=== PATIENT | female | born 1955 | race Two or more races ===

== ENCOUNTER 2025-01-31 10:43 | Observation (INO) | payer MEDICARE, MEDICAID, SELFPAY ==
[2025-01-31] VITALS (26 sets, daily range): BP systolic 133–163; BP diastolic 36–75; PULSE 40–55; RESP 13–97; TEMP 36.2–36.8; O2SAT 96–100; BMI 28.3
--- NOTE | 2025-01-31 10:52 | EKG_ITS ---
[facility] Test Date: 2025-01-31 Pat Name: BIN MONTES Department: Room: - Gender: Female Supervisor Type Photography: : 1955 Requested By: Jc Byrne Order Number: [id number] Reading MD: Jc Byrne Measurements Intervals [place] Rate: 40 P: 78 IA: 229 QRS: -40 QRSD: 135 T: 136 QT: 562 QTc: 461 Interpretive Statements SINUS BRADYCARDIA WITH FIRST DEGREE AV BLOCK LEFT AXIS DEVIATION [QRS AXIS < -30] RIGHT BUNDLE BRANCH BLOCK [120+ ms QRS DURATION, UPRIGHT V1, 40+ ms S IN I/aVL/V4/V5/V6] MODERATE T-WAVE ABNORMALITY, CONSIDER LATERAL ISCHEMIA [-0.1+ mV T-WAVE IN I/aVL/V5/V6] PROLONGED QT INTERVAL CRITICAL TEST RESULT Compared to ECG 05/19/2023 13:03:50 First degree AV block now present T-wave abnormality now present Possible ischemia now present Prolonged QT interval now present Sinus tachycardia no longer present /store/S0/[id number]/ecg/[id number].pdf
--- NOTE | 2025-01-31 10:52 | XR_ITS ---
EXAMINATION: AP chest single view TECHNIQUE: AP portable upright chest single view Date and time: January,, 11:19 a.m., comparison May 19, 2023 INDICATIONS: Chest pain today. FINDINGS: Early CHF Mild enlargement cardiac contour. Prominent vascular congestion. Early septal pulmonary edema. Prominent osteopenia IMPRESSION: Early CHF
[2025-01-31 11:39] LABS: Basophils # (Auto) 0.0 Thou/mm3 (0.0-0.2); Basophils % (Auto) 0 % (0-2.5); Eosinophils # (Auto) 0.2 Thou/mm3 (0.0-0.5); Eosinophils % (Auto) 3 % (0-10); Hematocrit 31.7 % (36.0-46.0); Hemoglobin 10.1 g/dL (12.0-16.0); Immature Granulocytes Auto 0.03 Thou/mm3 (0.00-0.00); Lymphocytes # (Auto) 1.3 Thou/mm3 (1.0-4.8); Lymphocytes % (Auto) 18 % (10-50); Mean Corpuscular HGB Conc 31.9 g/dl (31.0-37.0); Mean Corpuscular Hemoglobin 33.9 pg (25.0-35.0); Mean Corpuscular Volume 106 fL (80-100); Monocytes # (Auto) 0.6 Thou/mm3 (0.0-0.8); Monocytes % (Auto) 8 % (0-12); Neutrophils # (Auto) 5.0 Thou/mm3 (1.8-7.7); Neutrophils % (Auto) 70 % (37-80); Nucleated Red Blood Cell # 0.00 Thou/mm3 (0.00-0.00); Nucleated Red Blood Cell % 0 /100 WBC (0); Platelet Count 115 Thou/mm3 (140-440); RDW Standard Deviation 60.8 fL (36.4-46.3); Red Blood Count 2.98 Miln/mm3 (4.00-5.20); White Blood Count 7.1 Thou/mm3 (3.6-11.0)
[2025-01-31 12:01] LABS: Alanine Aminotransferase 31 U/L (10-49); Albumin, Serum 3.8 gm/dL (3.4-4.8); Albumin/Globulin Ratio 1.6 (1.2-2.2); Alkaline Phosphatase 105 U/L (46-116); Anion Gap 14 (7-16); Aspartate Amino Transferase 44 U/L (0-34); BUN/Creatinine Ratio 9 Ratio (12-20); Bilirubin,Total 0.2 mg/dL (0.3-1.2); Blood Urea Nitrogen 52 mg/dL (9-23); Calcium 8.6 mg/dL (8.3-10.6); Calcium (Corrected) 8.8 mg/dL (8.5-10.1); Carbon Dioxide 25.6 mMol/L (20.0-31.0); Chloride 103 mMol/L (98-107); Creatinine (Component) 5.5 mg/dL (0.6-1.3); Estimated Creatinine Clearance 8.1 mL/min (>60); Globulin 2.4 gm/dL (2.3-3.5); Glucose 336 mg/dL (74-106); Lipase 36 U/L (12-53); Magnesium 2.7 mg/dL (1.6-2.6); Osmolality,Calculated 311 (275-295); Potassium 5.9 mMol/L (3.4-5.1); Sodium 143 mMol/L (136-145); Total Protein 6.2 gm/dL (5.7-8.2); eGFR 8 See Note
[2025-01-31 12:07] LABS: Troponin I 0.129 ng/mL (0.0-0.045)
--- NOTE | 2025-01-31 12:08 | PD.EDADULT ---
ED General RME/HPI General Chief complaint: Chest Pain Stated complaint: CHEST PAIN Time Seen by Provider: 01/31/25 10:52 Arrival date/time: 01/31/25 10:43 Related Data Home Medications ?Medication ?Instructions ?Recorded ?Confirmed atorvastatin 80 mg tablet (Lipitor) 80 mg PO QDAY 03/13/22 05/18/23 clopidogrel 75 mg tablet (Plavix) 75 mg PO QDAY 03/13/22 05/18/23 insulin NPH-reg human insulin 100 1 sliding scale dose subcut 03/13/22 05/18/23 unit/mL (70-30) subcutaneous USEASDIRECTD Diabetes syringe pregabalin 75 mg capsule 75 mg PO BID 03/13/22 05/18/23 vitamin B comp no.3-folic acid 1 1 tab PO QDAY 03/13/22 05/18/23 mg-vit C 60 mg-biotin 300 mcg tablet (Lupe-Alejandro Rx) linagliptin 5 mg tablet (Tradjenta) 5 mg PO QAM 06/12/22 05/18/23 acetaminophen 650 mg 650 mg PO BID 12/12/22 05/18/23 tablet,extended release (Tylenol 8 Hour) midodrine 2.5 mg tablet 2.5 mg PO BID PRN low blood 12/12/22 05/18/23 pressure vitamins A,C,M-rhhq-lftxmr 4,296 1 cap PO DAILY 12/12/22 05/18/23 mcg-226 mg-90 mg capsule (PreserVision AREDS) cilostazol 50 mg tablet 50 mg PO BID 05/18/23 05/18/23 Previous Rx's ?Medication ?Instructions ?Recorded lisinopril 10 mg tablet 10 mg PO QDAY 30 days #30 tabs 05/23/23 polyethylene glycol 3350 17 4 g PO QDAY #119 grams 05/23/23 gram/dose oral powder (Miralax) Allergies Allergy/AdvReac Type Severity Reaction Status Date / Time No Known Allergies Allergy Verified 05/18/23 05:16 ED Exam Narrative Physical exam: Physical Exam: GENERAL: Awake, answering questions appropriately, appears stated age HEENT: NC/AT. Moist mucosa. PERRLA/EOMI. CARDIO: Heart RRR, no obvious murmurs, no JVD. PULM: No coughing or visible SOB. Lungs CTA B/L. GI: Abdomen soft, NT/ND, +BS. URO/FISHING VESSEL CAPTAIN: +Maxwell catheter SKIN/MSK/EXT: Left AV fistula patent with thrill. 2+ pitting edema bilateral lower extremities. No wounds/discoloration/rashes/amputations noted. +Pedal pulses present B/L. NEURO: Oriented x3, Moves extremities x4, no focal neurologic deficits noted. Course Quality Measures none Orders Category Date Time Status COVID-19 Screening Questionnaire NOW Care 01/31/25 13:16 Active Real Estate Underwriter STAT Care 01/31/25 10:52 Active Continuous Pulse Oximetry ONCE Care 01/31/25 10:52 Active Decision to Admit X1 Care 01/31/25 13:16 Completed EKG (ED ONLY) *Do not use* NOW Care 01/31/25 10:52 Completed Hemodialysis Urgent Care 01/31/25 13:24 Active Insert IV STAT Care 01/31/25 10:52 Active Consult to Cardiology Stat Cons 01/31/25 12:30 Ordered Consult to Nephrology Stat Cons 01/31/25 12:40 Ordered EKG (ED Only) Stat Exams 01/31/25 10:52 Draft XR chest 1V portable Stat Exams 01/31/25 10:52 Completed B-Type Natriuretic Peptide Stat Lab 01/31/25 11:19 Completed CBC Stat Lab 01/31/25 11:19 Completed Comprehensive Metabolic Panel Stat Lab 01/31/25 11:19 Completed Lipase Stat Lab 01/31/25 11:19 Completed Magnesium Stat Lab 01/31/25 11:19 Completed Troponin I Stat Lab 01/31/25 11:19 Completed Troponin I Stat Lab 01/31/25 12:27 Completed ALBUTEROL RT 3ml [Proventil Rt 3ml] Med 01/31/25 12:27 Discontinued 10 mg INH X1 ONE Calcium Gluconate 10% Inj Med 01/31/25 12:27 Discontinued 1 gm IV X1 ONE Insulin Regular Med 01/31/25 12:27 Discontinued 5 unit IV X1 ONE Nitroglycerin [Nitrostat 1/150] Med 01/31/25 10:52 Discontinued 0.4 mg SL Q5M PRN Oxygen Delivery NOW RT 01/31/25 10:52 Active Vital Signs Vital signs: Vital Signs Temperature 98.2 F 01/31/25 11:08 Pulse Rate 41 L 01/31/25 11:08 Respiratory Rate 13 01/31/25 11:08 Blood Pressure 141/42 H 01/31/25 11:08 Pulse Oximetry (%) 99 01/31/25 11:08 Oxygen Delivery Method Room Air 01/31/25 11:08 Discharge Plan Plan Patient Disposition: Admit Acute Care w/in Hospital Prescriptions/Referrals Prescriptions/Med Rec: No Action Tradjenta 5 mg Tablet 5 mg PO QAM atorvastatin [Lipitor] 80 mg Tablet 80 mg PO QDAY clopidogrel [Plavix] 75 mg Tablet 75 mg PO QDAY insulin NPH and regular human 100 unit/mL (70-30) Syringe 1 sliding scale dose SUBCUT USEASDIRECTD pregabalin 75 mg Capsule 75 mg PO BID Lupe-Alejandro Rx 1-60-300 mg-mg-mcg Tablet 1 tab PO QDAY acetaminophen [Tylenol 8 Hour] 650 mg Tablet Extended Release 650 mg PO BID PreserVision AREDS 4,296 mcg-226 mg-90 mg Capsule 1 cap PO DAILY midodrine 2.5 mg Tablet 2.5 mg PO BID PRN (Reason: low blood pressure) cilostazol 50 mg Tablet 50 mg PO BID lisinopril 10 mg tablet 10 mg PO QDAY 30 Days Qty: 30 2RF polyethylene glycol 3350 [Miralax] 17 gram/dose powder 4 g PO QDAY Qty: 119 0RF Referrals: [facility] ([facility])Katey PA-C [Primary Care Provider] - In 1 week Problem List Clinical Impression: Symptomatic bradycardia Patient/Caregiver Discharge Instructions Print Language: Malawian Stand Alone Forms: Kiara Award Info., Patient Portal Info Letter MDM Narrative MDM hospital course (for use when minimal MDM required): HPI: 69-year-old female with past medical history of ESRD on HD (MWF), coronary artery disease status post stent placement, history of DVT with previous IVC filter placement, fbm-vtajjyy-xkfrsbsst type 2 diabetes, hide per lipidemia presenting to the ED on 01/31 with an episode of chest pain during dialysis session. As per EMS report, patient started experiencing substernal chest pain 20 minutes into dialysis session associated with some shortness of breath. She states that she was having chest pain on and off for several weeks now but that during dialysis session it was unbearable. En route, EMS did give the patient 156 mg aspirin along with nitroglycerin which apparently improved her pain down to 2 out of 10. Of note, she sees cardiology outpatient (last visit several weeks ago) and recent stress test was unremarkable. She also states that for the past few weeks she has felt more dizzy especially when ambulating. On examination, please refer to the physical exam above; patient presented mildly hypertensive 141/42, bradycardic with a heart rate of 41, respiratory rate of 13, afebrile satting 99 on room air. Pertinent lab findings included macrocytic anemia with hemoglobin 10.1 and MCV of 106, platelets 115, CMP did show hyperkalemia with a potassium of 5.9, BUN 52, creatinine 5.5, mild elevation of liver enzymes with an AST of 44, ALT 31 but daily bilirubin of 0.2, troponin was initially 0.129 but has downtrended to 0.127 and BNP is 1810, lipase of 36. EKG showed sinus bradycardia with prolonged SD interval likely first-degree AV block with some T wave abnormalities but no ST elevation. Chest x-ray did show early signs of CHF with prominent vascular congestion and mildly enlarged cardiac silhouette. #NSTEMI type II versus less likely to be type I #Symptomatic bradycardia As noted, patient's been having chest pain likely secondary to ESRD status versus overt coronary artery disease but she does have risk factors and history of CAD with stent placement Troponin of 0.129 has downtrended, chest x-ray does show vascular congestion likely secondary to ESRD Patient's EKG shows sinus bradycardia with first-degree AV block with some mild T wave inversions but no ST elevations Patient's printed circuit boards solder leveler consulted and is agreed to monitor the patient while she is admitted for possible need of pacemaker placement Nephrology has been consulted to continue dialysis sessions at the patient will require Plan: Hospitalist team was called and have agreed to admit the patient #Hyperkalemia As noted patient had a potassium of 5.9, abruptly stopped dialysis session Plan: IV insulin regular 5 units, calcium gluconate 1 g and albuterol treatment Dialysis as above Patient seen and assessed with attending Dr. Lee Byrne, DO PGY-2 Internal Medicine - GME Medication Administration(s) Medication Administration History Discontinued Medications Albuterol (Albuterol Rt 2.5 Mg/3 Ml Nebu) 10 mg INH X1 ONE Stop: 01/31/25 12:28 Last Admin: 01/31/25 13:00 Dose: 10 mg Documented By: KISHAN Calcium Gluconate (Calcium Gluconate 10% Inj 1 Gm/10 Ml Vial) 1 gm IV X1 ONE Stop: 01/31/25 12:28 Last Admin: 01/31/25 12:43 Dose: 1 gm Documented By: SERINA Insulin Human Regular (Insulin Hum Regular 1 Unit/0.01 Ml (Per Unit)) 5 unit IV X1 ONE Stop: 01/31/25 12:28 Last Admin: 01/31/25 12:42 Dose: 5 unit Documented By: SERINA Co-signed By: LESLYE Nitroglycerin (Nitroglycerin 0.4 Mg Subl Btl #25) 0.4 mg SL Q5M PRN PRN Reason: CHEST PAIN Stop: 01/31/25 12:52 Last Admin: 01/31/25 12:55 Dose: 0.4 mg Documented By: Admin: 01/31/25 12:43 Dose: 0.4 mg Documented By: SERINA
[2025-01-31] MEDS: INSULIN HUM REGULAR 1 UNIT/0.01 ML (PER UNIT) 5 UNIT IV (12:42)
[2025-01-31] MEDS: CALCIUM GLUCONATE 10% INJ 1 GM/10 ML VIAL IV (12:43)
[2025-01-31] MEDS: NITROGLYCERIN 0.4 MG SUBL BTL #25 SL ×2 (12:43→12:55)
[2025-01-31] MEDS: ALBUTEROL RT 2.5 MG/3 ML NEBU 10 MG INH (13:00)
[2025-01-31 13:19] LABS: B-Type Natriuretic Peptide 1810 pg/mL (0-100)
--- NOTE | 2025-01-31 13:37 | PD.RESCONSUL ---
HPI Data of Consult Consult date: 01/31/25 Consult Narrative Reason for consult: ESRD on dialysis History of present illness: Ms. Barakat is a 69-year-old female with past medical history of ESRD on HD (MWF), coronary artery disease status post stent placement, history of DVT with previous IVC filter placement, adm-etxetuf-ujoicvcqa type 2 diabetes, hide per lipidemia presenting to the ED on 01/31 with an episode of chest pain during dialysis session. As per EMS report, patient started experiencing substernal chest pain 20 minutes into dialysis session associated with some shortness of breath. She states that she was having chest pain on and off for several weeks now but that during dialysis session it was unbearable. En route, EMS did give the patient 156 mg aspirin along with nitroglycerin which apparently improved her pain down to 2 out of 10. Of note, she sees cardiology outpatient (last visit several weeks ago) and recent stress test was unremarkable. She also states that for the past few weeks she has felt more dizzy especially when ambulating. On examination, patient presented mildly hypertensive 141/42, bradycardic with a heart rate of 41, respiratory rate of 13, afebrile satting 99 on room air. Pertinent lab findings included macrocytic anemia with hemoglobin 10.1 and MCV of 106, platelets 115, CMP did show hyperkalemia with a potassium of 5.9, BUN 52, creatinine 5.5, mild elevation of liver enzymes with an AST of 44, ALT 31 but daily bilirubin of 0.2, troponin was initially 0.129 but has downtrended to 0.127 and BNP is 1810, lipase of 36. EKG showed sinus bradycardia with prolonged MN interval likely first-degree AV block with some T wave abnormalities but no ST elevation. Chest x-ray did show early signs of CHF with prominent vascular congestion and mildly enlarged cardiac silhouette. Past Medical History: as above Family History: noncontributory Surgical History: stent placement 3 years ago, remote right hand surgery Social History: Denies history of smoking, denies current alcohol use, denies recreational drug use Current Medications: Takes Lupe-parminder but does not take phoshate binder, does not recall meds nor has list, pending med rec Allergies: No known drug allergies Nephrology consulted for ESRD on dialysis MWF, requiring emergent dialysis today. 12/8/25: Patient seen and assessed during dialysis with patient daughter at bedside. Tolerating dialysis well. Follows alteration tailor Dr. Lopez. Per daughter, patient was started on dialysis 3 years ago after multiple consecutive MIs, last dialysis session Friday. Reports she has been compliant with sessions. Plan to remove 2L, will keep dialysis schedule for now. cc:: cc: Exam Vital Signs Temp Pulse Resp BP Pulse Ox O2 Del Method 98.2 F 40 L 16 148/44 H 97 Room Air 01/31/25 11:08 01/31/25 13:01 01/31/25 13:01 01/31/25 12:55 01/31/25 13:01 01/31/25 11:08 Narrative Exam Physical Exam General: Awake and in no acute distress. Conversational and non-toxic appearing. Sammarinese speaking, daughter at bedside. HEENT: Normocephalic, atraumatic, mucous membranes moist. Heart: Regular rate and rhythm, normal S1 and S2, no murmurs appreciated. Lungs: Clear to auscultation with no wheezing or crackles. Abdomen: Soft, nondistended, nontender, positive bowel sounds. No guarding or rebound tenderness. Neurologic: Alert and oriented x3, no gross neurological deficit, and patient able to move all 4 extremities. Extremities: Trace pitting edema in lower extremities. Skin: No rash or ecchymoses. Results Labs 02/01/25 04:55 02/01/25 04:55 Labs: Short CBC 01/31/25 Range/Units 11:19 WBC 7.1 (3.6-11.0) Thou/mm3 Hgb 10.1 L (12.0-16.0) g/dL Hct 31.7 L (36.0-46.0) % Plt Count 115 L (140-440) Thou/mm3 BMP 01/31/25 11:19 Sodium 143 Potassium 5.9 H Chloride 103 Carbon Dioxide 25.6 BUN 52 H Creatinine 5.5 H* Glucose 336 H Calcium 8.6 Cardiac Enzymes 01/31/25 Range/Units 11:19 Troponin I 0.129 H* (0.0-0.045) ng/mL Liver Function 01/31/25 Range/Units 11:19 Total Bilirubin 0.2 L (0.3-1.2) mg/dL AST 44 H (0-34) U/L ALT 31 (10-49) U/L Alkaline Phosphatase 105 (46-116) U/L Albumin 3.8 (3.4-4.8) gm/dL Quality Measures Quality Measures VTE prophylaxis Advance care planning discussed with:: patient Medications Home Medications and Allergies Home Medications ?Medication ?Instructions ?Recorded ?Confirmed ?Type atorvastatin 80 mg tablet (Lipitor) 80 mg PO HS 03/13/22 01/31/25 History clopidogrel 75 mg tablet (Plavix) 75 mg PO QDAY 03/13/22 01/31/25 History insulin NPH-reg human insulin 100 1 sliding scale dose subcut 03/13/22 01/31/25 History unit/mL (70-30) subcutaneous USEASDIRECTD Diabetes syringe pregabalin 75 mg capsule 75 mg PO BID 03/13/22 01/31/25 History vitamin B comp no.3-folic acid 1 1 tab PO QDAY 03/13/22 01/31/25 History mg-vit C 60 mg-biotin 300 mcg tablet (Lupe-Parminder Rx) linagliptin 5 mg tablet (Tradjenta) 5 mg PO QAM 06/12/22 01/31/25 History acetaminophen 650 mg 650 mg PO BID 12/12/22 01/31/25 History tablet,extended release (Tylenol 8 Hour) midodrine 2.5 mg tablet 2.5 mg PO BID PRN low blood 12/12/22 01/31/25 History pressure vitamins A,C,I-kulr-zrqkef 4,296 1 cap PO DAILY 12/12/22 01/31/25 History mcg-226 mg-90 mg capsule (PreserVision AREDS) cilostazol 50 mg tablet 50 mg PO BID 05/18/23 01/31/25 History amlodipine 5 mg tablet 5 mg PO QDAY 01/31/25 01/31/25 History insulin aspart (niacinamide) 4 unit subcut .2 PM 01/31/25 01/31/25 History (U-100) 100 unit/mL subcutaneous solution (Fiasp U-100 Insulin) insulin degludec 200 unit/mL (3 16 unit subcut QDAY 01/31/25 01/31/25 History mL) subcutaneous pen (Tresiba FlexTouch U-200 insulin) linagliptin 5 mg tablet (Tradjenta) 5 mg PO QDAY 01/31/25 01/31/25 History metoprolol succinate 25 mg 25 mg PO QDAY 01/31/25 01/31/25 History tablet,extended release 24 hr Allergies Allergy/AdvReac Type Severity Reaction Status Date / Time No Known Allergies Allergy Verified 05/18/23 05:16 Visit Medications Discontinued Medications Albuterol (Albuterol Rt 2.5 Mg/3 Ml Nebu) 10 mg INH X1 ONE Stop: 01/31/25 12:28 Last Admin: 01/31/25 13:00 Dose: 10 mg Calcium Gluconate (Calcium Gluconate 10% Inj 1 Gm/10 Ml Vial) 1 gm IV X1 ONE Stop: 01/31/25 12:28 Last Admin: 01/31/25 12:43 Dose: 1 gm Insulin Human Regular (Insulin Hum Regular 1 Unit/0.01 Ml (Per Unit)) 5 unit IV X1 ONE Stop: 01/31/25 12:28 Last Admin: 01/31/25 12:42 Dose: 5 unit Nitroglycerin (Nitroglycerin 0.4 Mg Subl Btl #25) 0.4 mg SL Q5M PRN PRN Reason: CHEST PAIN Stop: 01/31/25 12:52 Last Admin: 01/31/25 12:55 Dose: 0.4 mg Assessment & Plan Plan Patient is a 69-year-old female with past medical history of ESRD on HD (MWF), coronary artery disease status post stent placement, history of DVT with previous IVC filter placement, kym-pwulbzw-vfuzalxll type 2 diabetes, hyperlipidemia presenting to the ED on 01/31 with an episode of chest pain during dialysis session. #ESRD on dialysis MWF - Presented with sudden chest pressure and worsening shortness of breath during dialysis session today, however reports symptoms have been worsening over the past week - Has been on dialysis MWF for 3 years s/p MIs. Follows Dr. Lopez in [place]. Patient taking medications for diabetes, HTN, and HLD but does not recall names, daughter also does not know. - Reports taking Renavite but not taking phosphate binder. - On exam, patient has trace edema in lower extremities but lung exam clear. - BP 141/42 on admission, systolics 140-150. - Creatinine 5.5 (baseline 2.8-3.2 in 2023). - Possibly multifactorial in setting of diabetes, hypertension, and consecutive MIs in the past. Plan: - Dialysis today, plan to remove 2L - Continue to monitor renal panel - Pending official med rec #Hyperkalemia - Potassium 5.9 on admission - Likely elevated due to interrupted dialysis session - S/p insulin, calcium gluconate, and albuterol in ED Plan: - Continue dialysis today - Monitor daily renal panel #NSTEMI type II versus less likely to be type I #CAD s/p stent placement 3 years ago #Symptomatic bradycardia #Hx DVT #S/p IVC filter placement #NIDDM2 #HLD - Defer to primary team for management Thank you for your consultation, please do not hesitate to reach out if you have any question or concern Patient plan of care was discussed with the attending physician, Dr. Salter. Stephanie Escobar DO, PGY-1 Attending Provider Attestation/Addendum Patient currently seen and examined with resident physician Dr. Escobar. Note reviewed, agree with findings and recommendations. Patient of Dr. Lopez. Daughter at bedside. Did have some chest pain and was sent from the dialysis unit. Currently asymptomatic. No EKG changes. Troponin negative. Patient currently seen on dialysis. Tolerating dialysis without any problems. Hemodialysis for 3 hours, 2K, ultrafiltration 2-3 L, Epogen 6000, no heparin ordered. Plan of care discussed with the dialysis nurse. Please see dialysis flowsheet for further details. Thank you Maryam for allowing me to participate in the care of Ms. Barakat
[2025-01-31 13:50] LABS: Troponin I 0.127 ng/mL (0.0-0.045)
--- NOTE | 2025-01-31 15:26 | ESHP_ITS ---
<Statement entered by Aiden Brown MD - 01/31/25 16:42> 6-year-old female with a history of ESRD on HD (M/W/F, follows Dr. Moreno), CAD status post stents (follows Dr. Tejeda), diabetes complicated by diabetic nephropathy, hypertension, dyslipidemia, bilateral lower extremity DVT with IVC filter who presents due to chest discomfort. Patient states that while at dialysis center and prior to receiving dialysis, she was experiencing substernal chest pain and associated lightheadedness. Denies any shortness of breath or syncope but does have some dyspnea with exertion as well. Of note, she was recently seen at her scarfer office approximately 1 month ago and went over her Ivania scan results and per patient, were negative. She also states that she was started on a new medication that may affect heart rate but is unsure of what that is. Upon evaluation, vitals showed rate in 40s and saturating well on 2 L NC. EKG showed sinsu mariama cardia with new first-degree AV block and old RBBB. Will follow-up on cardiology recommendations. Troponins noted to be elevated but levels chronically elevated. K 5.9 and given cocktail with insulin and albuterol and will follow-up levels in AM labs. Nephrology consulted for ESRD. ----- Note reviewed and agree with care plan as documented. Please refer to the note below for further details. Plan discussed with attending physician Dr. Bruce Brown MD PGY-2 Internal Medicine Documentation for date of: 01/31/25 HPI History of Present Illness History of present illness: 69F w/ a significant past medical history including ESRD on Dialysis MWF(Seen by Dr. Lopez) CAD(seen by Dr. Tejeda) s/p 2 stents here for symptomatic bradycardia. Pt denotes a 2-week history of dull chest pain, rated 7/10 without radiation to extremities nor jaw. Additionally Ms. Barakat is stating that she has midl shortness of breath, at baseline without exertion. She is currently getting dialysis upon visit. Daughter is at bedside to confirm history. EKG in the ED was significant for heart rate of 40bpm and a RBBB. Initial troponin 0.129 but downtrended on repeat to 0.127. BNP drawn on admission is 1810. VSS. Ms. Barakat is not endorsing any nausea, vomiting, lightheadedness nor diaphoresis. Physical exam is noncontributory. Admission for workup of symptomatic bradycardia is done and patient remains stable while on dialysis. Held talks with pt and daughter who confirm Mrs. Barakat's DNR DNI status. Long medical history significant for ICU admission for respiratory arrest in October 2021 that included the following interventions: 11/01/2021 - IVC filter placement by Dr. Jamie Quintana, bilateral DVT's found on US s/p respiratory arrest and intubation 11/02/[address] Murry for a previous episode of emesis concerning for hematemesis - negative findings for ulcers nor variceal bleeding Cardiac Catheterization by Dr. Tejeda in November 2022 which revealed LVEF 45-50%, 30-40% stenosis of distal main left artery, proximal LAD stents Hip replacement in April [address] Shilo Barton after a fall and hospitalization for surgery Review of Systems Review of Systems Systems Reviewed: All systems reviewed, normal except as documented Past Medical History Past Medical History CARDIAC: Positive Coronary Artery Disease GENITOURINARY: Positive Chronic Kidney Disease and Renal Disease Exam Vital Signs Temp Pulse Resp BP Pulse Ox O2 Del Method 97.1 F 44 L 14 134/53 H 100 Room Air 01/31/25 14:03 01/31/25 15:15 01/31/25 14:03 01/31/25 15:15 01/31/25 14:03 01/31/25 13:38 Narrative Exam General: alert and oriented to self/place/year, no acute distress, able to speak full sentences; Icelandic-speaking with daughter at bedside. Patient is resting in bed without concern nor active symptoms getting dialysis. Able to speak full sentences and demonstrates good introspection HEENT: NC/AT, mucous membranes moist, bilateral sclera anicteric Cardiovascular: regular rate and rhythm, S1/S2 present, no murmurs appreciated Pulmonary: clear to auscultation bilaterally, no rales/rhonchi/wheezes Abdominal: soft, nontender, present bowel sounds Musculoskeletal: no peripheral edema Skin: Warm, well-perfused Results: Labs 02/01/25 04:55 02/01/25 04:55 Labs: Short CBC 01/31/25 Range/Units 11:19 WBC 7.1 (3.6-11.0) Thou/mm3 Hgb 10.1 L (12.0-16.0) g/dL Hct 31.7 L (36.0-46.0) % Plt Count 115 L (140-440) Thou/mm3 BMP 01/31/25 11:19 Sodium 143 Potassium 5.9 H Chloride 103 Carbon Dioxide 25.6 BUN 52 H Creatinine 5.5 H* Glucose 336 H Calcium 8.6 Cardiac Enzymes 01/31/25 01/31/25 Range/Units 11:19 12:27 Troponin I 0.129 H* 0.127 H* (0.0-0.045) ng/mL Liver Function 01/31/25 Range/Units 11:19 Total Bilirubin 0.2 L (0.3-1.2) mg/dL AST 44 H (0-34) U/L ALT 31 (10-49) U/L Alkaline Phosphatase 105 (46-116) U/L Albumin 3.8 (3.4-4.8) gm/dL Quality Measures Quality Measures none Advance care planning discussed with:: patient and child Medications Home Medications and Allergies Home Medications ?Medication ?Instructions ?Recorded ?Confirmed ?Type atorvastatin 80 mg tablet (Lipitor) 80 mg PO HS 01/31/25 History clopidogrel 75 mg tablet (Plavix) 75 mg PO QDAY 01/31/25 History pregabalin 75 mg capsule 75 mg PO BID 03/13/22 History vitamin B comp no.3-folic acid 1 1 tab PO QDAY 2 3 01/31/25 History mg-vit C 60 mg-biotin 300 mcg tablet ([facility] Rx) linagliptin 5 mg tablet (Tradjenta) 5 mg PO QAM 01/31/25 History acetaminophen 650 mg 650 mg PO BID 12/12/2201/31 History tablet,extended release (Tylenol 8 Hour) midodrine 2.5 mg tablet 2.5 mg PO BID PRN low blood 12/12/22 01/31/25 History Held on 02/01/25. pressure Instructions: Hold until you follow-up with your scarfer/PCP cilostazol 50 mg tablet 50 mg PO BID 05/18/23 History amlodipine 5 mg tablet 5 mg PO QDAY 01/31/25 History insulin aspart (niacinamide) 4 unit subcut .2 PM 01/3101/31/25 History (U-100) 100 unit/mL subcutaneous solution (Fiasp U-100 Insulin) insulin degludec 200 unit/mL (3 16 unit subcut QDAY 01/31/25 History mL) subcutaneous pen (Tresiba FlexTouch U-200 insulin) metoprolol succinate 25 mg 25 mg PO QDAY 01/31/2510/18 History tablet,extended release 24 hr Held on 02/01/25. Instructions: Hold until follow-up with scarfer Allergies Allergy/AdvReac Type Severity Reaction Status Date / Time No Known Allergies Allergy Verified 05/18/23 05:16 Visit Medications Acetaminophen (Acetaminophen 325 Mg Tablet) 650 mg PO Q6H PRN PRN Reason: FEVER >100.4 Stop: 03/02/25 15:05 Ondansetron HCl (Ondansetron Inj 2 Mg/Ml Inj 2 Ml) 4 mg IVP Q6H PRN; Protocol PRN Reason: NAUSEA OR VOMITING Stop: 03/02/25 15:05 Pantoprazole Sodium (Pantoprazole 40 Mg Tablet) 40 mg PO QDAY [facility] Stop: 03/03/25 08:59 Discontinued Medications Acetaminophen (Acetaminophen 325 Mg Tablet) 650 mg PO Q6H PRN PRN Reason: Fever >101.5 Stop: 03/02/25 15:05 Albuterol (Albuterol Rt 2.5 Mg/3 Ml Nebu) 10 mg INH X1 ONE Stop: 01/31/25 12:28 Last Admin: 01/31/25 13:00 Dose: 10 mg Calcium Gluconate (Calcium Gluconate 10% Inj 1 Gm/10 Ml Vial) 1 gm IV X1 ONE Stop: 01/31/25 12:28 Last Admin: 01/31/25 12:43 Dose: 1 gm Enoxaparin Sodium (Enoxaparin Sod Inj 40 Mg/0.4 Ml Syringe) 40 mg SC QDAY [facility] Stop: 02/15/25 08:59 Insulin Human Regular (Insulin Hum Regular 1 Unit/0.01 Ml (Per Unit)) 5 unit IV X1 ONE Stop: 01/31/25 12:28 Last Admin: 01/31/25 12:42 Dose: 5 unit Nitroglycerin (Nitroglycerin 0.4 Mg Subl Btl #25) 0.4 mg SL Q5M PRN PRN Reason: CHEST PAIN Stop: 01/31/25 12:52 Last Admin: 01/31/25 12:55 Dose: 0.4 mg Assessment & Plan Plan 69F w/ a significant past medical history including ESRD on Dialysis MWF(Seen by Dr. Lopez) CAD(seen by Dr. Tejeda) s/p 2 stents here for symptomatic bradycardia. #Symptomatic bradycardia #Hyperlipidemia #CAD status post stents Unknown hx of cardiac stenting, re-catheterization in [address] Tejeda revealed LEF 45-50% as well as 30-40% occlusion of distal L main, prox LAD stents IVC FIlter placement in 11/01/[address] Jamie Quintana Troponin admission 0.129, downtrended to 0.127 BNP admission 1809 -continue to symptomatically evaluate -Resume home midodrine 2.5mg BID PRN -Consultation to Dr. Tejeda for further managment of symptomatic bradycardia #End-Stage Renal Disease #Chronic Kidney Disease patient with a history of ESRD on dialysis seen by Dr. Lopez, dialysis schedule MWF AV FIstula L arm in [address] Kendrick Beaulieu -Getting dialysis during examination, to follow up AM labs -AM CBC CMP -Follow up A1c -Consultation pending recomendations by Dr. Salter s/p dialysis #Claudication, lower extremities -Resume home medication cilostazol 50mg BID #Nerve pain -resume home medication regimen of pregabalin 75mg BID Hospital management: Disposition: admission for further workup of symptomatic bradycardia Fluids: NA Diet: renal diet Lines: PIV DVT prophylaxis: SCDs CODE STATUS: DNR Patient seen, assessed and plan discussed with attending physician Dr. Barrera and senior resident Dr. Aiden Chapa MD PGY-1 Attending Provider Attestation/Addendum I, Maryam Barrera, DO, attest that I was physically present for the cassidy portions of the service and evaluated the patient with the resident and I reviewed and discussed the case with the resident and agree with the resident's findings and plans of care as documented above Patient is a 69-year-old female with past medical history of stage renal disease on dialysis Friday, CAD status post 2 stents who was brought from dialysis due to chest pain. Patient states that the chest pain has been ongoing for about 2 weeks and had undergone workup outpatient with her scarfer. Patient had a stress test and echocardiogram both of which were reportedly unremarkable. Daughter was at bedside at time of evaluation. Patient states that the pain usually comes on with exertion. She states the pain is pressure-like as well. It is nonradiating. She does endorse having lightheadedness at times however. She states that the pain initially began this morning when she was getting ready to leave her home for dialysis. Of note, patient was noted to have bradycardia with heart rate in the 40s on presentation. Her potassium was also noted to be elevated at 5.9 on presentation. She denies any nausea or vomiting. Troponin was noted to be 0.129 and BNP was 1810. She does not appear fluid overloaded on exam and denies any shortness of breath. Lungs were clear to auscultation on exam. Chest pain had resolved at time of evaluation. EKG was done in the ED showing right bundle branch block with prolonged QT. Cardiology and nephrology were consulted from ED. Will admit patient to telemetry for further workup and medical management of chest pain to rule out ACS and possibly symptomatic bradycardia leading to her lightheadedness and chest pain. Bradycardia may have precipitated from hyperkalemia. Will follow-up with repeat electrolytes following dialysis. Case was discussed with nephrology in detail in the ED.
--- NOTE | 2025-01-31 17:23 | PC.OT ---
Pt is in dialysis. Hand off report given to Telemetry nurse. Dialysis nurse aware.
--- NOTE | 2025-01-31 18:31 | ESCONSULT_ITS ---
<Statement entered by Staci Tejeda MD - 02/01/25 12:31> I personally examined evaluated this patient with resident physician PGY [address] Dr. Hummel patient is well well-known to me history of left main stent placement complex LAD circumflex stent placement more than 3 years ago doing well and recently she had a negative cardiac workup came to the hospital after dialysis appears to have somewhat hyperkalemia potassium 5.9 bradycardia she has had a sinus bradycardia versus Mobitz 1 type of second-degree AV block but asymptomatic patient is feeling little better underwent dialysis now off dialysis heart rate did improved to 50s patient was on low-dose beta-daily for heart failure HFrEF will monitor the heart rate closely and once heart rate in the 50s we can resume low-dose beta-daily no contraindication or bradycardia possibly aggravated by hyperkalemia. No need for permanent pacing plantation will monitor the patient and evaluate her again tomorrow HPI Data of Consult Requesting Physician: Maryam Barrera DO Admitting Provider: Maryam Barrera DO Attending Provider: Maryam Barrera DO Primary Care Provider: Katey Arboleda PA-C([facility] Consult Narrative Reason for consult: Bradycardia History of present illness: Patient is 69-year-old female PMH of ESRD on HD (M/W/F, follows Dr. Moreno), CAD status post stents (follows Dr. Tejeda), diabetes complicated by diabetic nephropathy, hypertension, dyslipidemia, bilateral lower extremity DVT with IVC filter who presents due to SOB and was sent to ED from dialysis center due to her bradycardia. She did not have any dialysis completed today. Denying any chest pain, dizziness, lower extremity swelling. She feels weak. 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 Patient was not started on any new medications recently. Per cardiology note in 2023, Last angiogram performed in 2022 1 year after the multiple stent showed that all the stents are widely patent. There was a moderate disease involving circumflex artery, OM branches, ejection fraction of 45-50%. 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 Patient is on atorvastatin 80 mg daily, cilostazol 50 mg twice daily, Plavix 75 daily, lisinopril 10, midodrine 2.5 twice daily as needed, Tradjenta. Vitals in the ED showed bradycardia rate 41, blood pressure stable. Labs were reviewed she has hyperkalemia potassium 5.9, BUN 52, creatinine 5.5. Magnesium 2.7, troponin 0.129 now down trended. Telemetry was reviewed rate 45?50. Patient has Mobitz type I heart block. Correct potassium, continue to monitor patient. No indication for pacemaker at this time. cc:: cc: Maryam Barrera DO Review of Systems Review of Systems Systems Reviewed: All systems reviewed, normal except as documented Exam Vital Signs Temp Pulse Resp BP Pulse Ox O2 Del Method 97.1 F 49 L 14 157/58 H 99 Room Air 01/31/25 17:21 01/31/25 17:21 01/31/25 17:21 01/31/25 17:21 01/31/25 17:21 01/31/25 13:38 Narrative Exam General: alert and oriented to self/place/year, no acute distress, able to speak full sentences; Belarusian-speaking with daughter at bedside. HEENT: NC/AT, mucous membranes moist, bilateral sclera anicteric Cardiovascular: regular rate and rhythm, S1/S2 present, no murmurs appreciated Pulmonary: clear to auscultation bilaterally, no rales/rhonchi/wheezes Abdominal: soft, nontender, present bowel sounds Musculoskeletal: no peripheral edema Skin: Warm, well-perfused Results Labs 01/31/25 11:19 01/31/25 11:19 Labs: Short CBC 01/31/25 Range/Units 11:19 WBC 7.1 (3.6-11.0) Thou/mm3 Hgb 10.1 L (12.0-16.0) g/dL Hct 31.7 L (36.0-46.0) % Plt Count 115 L (140-440) Thou/mm3 BMP 01/31/25 11:19 Sodium 143 Potassium 5.9 H Chloride 103 Carbon Dioxide 25.6 BUN 52 H Creatinine 5.5 H* Glucose 336 H Calcium 8.6 Cardiac Enzymes 01/31/25 01/31/25 Range/Units 11:19 12:27 Troponin I 0.129 H* 0.127 H* (0.0-0.045) ng/mL Liver Function 01/31/25 Range/Units 11:19 Total Bilirubin 0.2 L (0.3-1.2) mg/dL AST 44 H (0-34) U/L ALT 31 (10-49) U/L Alkaline Phosphatase 105 (46-116) U/L Albumin 3.8 (3.4-4.8) gm/dL Quality Measures Quality Measures VTE prophylaxis Advance care planning discussed with:: patient Medications Home Medications and Allergies Home Medications ?Medication ?Instructions ?Recorded ?Confirmed ?Type atorvastatin 80 mg tablet (Lipitor) 80 mg PO QDAY 02/2405/18/23 History clopidogrel 75 mg tablet (Plavix) 75 mg PO QDAY 05/18/23 History insulin NPH-reg human insulin 100 1 sliding scale dose subcut 03/13/22 05/18/23 History unit/mL (70-30) subcutaneous USEASDIRECTD Diabetes syringe pregabalin 75 mg capsule 75 mg PO BID 03/13/22 History vitamin B comp no.3-folic acid 1 1 tab PO QDAY 3 05/18/23 History mg-vit C 60 mg-biotin 300 mcg tablet ([facility] Rx) linagliptin 5 mg tablet (Tradjenta) 5 mg PO QAM 05/18/23 History acetaminophen 650 mg 650 mg PO BID 12/12/2205/17 History tablet,extended release (Tylenol 8 Hour) midodrine 2.5 mg tablet 2.5 mg PO BID PRN low blood 12/12/22 05/18/23 History pressure vitamins A,C,U-kepq-zddpso 4,296 1 cap PO DAILY 05/18/23 History mcg-226 mg-90 mg capsule (PreserVision AREDS) cilostazol 50 mg tablet 50 mg PO BID 05/18/23 History Allergies Allergy/AdvReac Type Severity Reaction Status Date / Time No Known Allergies Allergy Verified 05/18/23 05:16 Visit Medications Acetaminophen (Acetaminophen 325 Mg Tablet) 650 mg PO Q6H PRN PRN Reason: FEVER >100.4 Stop: 03/02/25 15:05 Atorvastatin Calcium (Atorvastatin Calcium 20 Mg Tablet) 80 mg PO HS ANGELES Stop: 03/02/25 20:59 Cilostazol (Cilostazol 50 Mg Tablet) 50 mg PO BID [facility] Stop: 03/02/25 20:59 Clopidogrel Bisulfate (Clopidogrel Bisulfate 75 Mg Tablet) 75 mg PO DAILY [facility] Stop: 03/03/25 08:59 Dextrose (Dextrose 50%-Water Inj 50 Ml Syringe) 25 ml IV Q15MIN PRN PRN Reason: BG 50-70 responsive npo pt Stop: 03/02/25 15:53 Dextrose (Dextrose 50%-Water Inj 50 Ml Syringe) 50 ml IV Q15MIN PRN PRN Reason: BG <50 OR BG <70 & pt unresponsive Stop: 03/02/25 15:53 Glucagon (Glucagon Inj 1 Mg Vial) 1 mg IM Q15MIN PRN PRN Reason: BG <70, and no IV access Insulin Human Regular (Insulin Hum Regular 1 Unit/0.01 Ml (Per Unit)) 0 unit SC [facility]; Protocol Stop: 03/02/25 16:59 Midodrine (Midodrine 2.5 Mg Tablet) 2.5 mg PO BID PRN PRN Reason: Blood Pressure - Low Stop: 03/02/25 20:59 Ondansetron HCl (Ondansetron Inj 2 Mg/Ml Inj 2 Ml) 4 mg IVP Q6H PRN; Protocol PRN Reason: NAUSEA OR VOMITING Stop: 03/02/25 15:05 Pantoprazole Sodium (Pantoprazole 40 Mg Tablet) 40 mg PO QDAY [facility] Stop: 03/03/25 08:59 Pregabalin (Pregabalin 75 Mg Capsule) 75 mg PO BID [facility] Stop: 03/02/25 20:59 Discontinued Medications Acetaminophen (Acetaminophen 325 Mg Tablet) 650 mg PO Q6H PRN PRN Reason: Fever >101.5 Stop: 03/02/25 15:05 Albuterol (Albuterol Rt 2.5 Mg/3 Ml Nebu) 10 mg INH X1 ONE Stop: 01/31/25 12:28 Last Admin: 01/31/25 13:00 Dose: 10 mg Calcium Gluconate (Calcium Gluconate 10% Inj 1 Gm/10 Ml Vial) 1 gm IV X1 ONE Stop: 01/31/25 12:28 Last Admin: 01/31/25 12:43 Dose: 1 gm Enoxaparin Sodium (Enoxaparin Sod Inj 40 Mg/0.4 Ml Syringe) 40 mg SC QDAY [facility] Stop: 02/15/25 08:59 Insulin Human Regular (Insulin Hum Regular 1 Unit/0.01 Ml (Per Unit)) 5 unit IV X1 ONE Stop: 01/31/25 12:28 Last Admin: 01/31/25 12:42 Dose: 5 unit Nitroglycerin (Nitroglycerin 0.4 Mg Subl Btl #25) 0.4 mg SL Q5M PRN PRN Reason: CHEST PAIN Stop: 01/31/25 12:52 Last Admin: 01/31/25 12:55 Dose: 0.4 mg Assessment & Plan Plan Patient is 69-year-old female PMH of ESRD on HD (M/W/F, follows Dr. Moreno), CAD status post stents (follows Dr. Tejeda), diabetes complicated by diabetic nephropathy, hypertension, dyslipidemia, bilateral lower extremity DVT with IVC filter who presents due to SOB and was sent to ED from dialysis center due to her bradycardia. Cardiology was consulted for bradycardia. #Asymptomatic bradycardia #Mobitz type I heart block #CAD status post GA #Multivessel stent placement LAD, RCA #Mild left ventricular dysfunction, ejection fraction 45-50% Patient denies any dizziness, syncope, No chest pain or pressure. Is feeling some weakness and mild shortness of breath with exertion. KG in the ED showed bradycardia Rate of 40. A sinus bradycardia. However review and telemetry showed that patient was in Mobitz type I heart block. Troponins were mildly elevated 0.129 now 0.127. Appears that even at baseline her troponins are elevated. Stents were placed in 2021. There was a moderate disease involving circumflex artery, OM branches, ejection fraction of 45-50%. 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 Vascular surgery was not recommended because she was too risky and also she was not very symptomatic, not very ambulatory. Controlled well on cilostazol. - Correct hyperkalemia - No indication for pacemaker patient is asymptomatic. - Will continue to monitor for any changes #Chronic Kidney Disease #On Dialysis #End-Stage Renal Disease #Nerve pain #claudication Primary care team to manage above conditions and ongoing care needs. The patient's management plan was discussed with my attending physician Dr. Tejeda. Ritu Caballero, PGY-2
--- NOTE | 2025-01-31 19:00 | PC.NURSE ---
Received pt from Dialysis, report from Marta (ED). Home medication not at bedside. Daughter states she will retrieve them and bring them in tonight. Care endorsed to lieutenant shift supervisor Marta TRIVEDI.
[2025-01-31] MEDS: ATORVASTATIN CALCIUM 20 MG TABLET 80 MG PO (20:45)
[2025-01-31] MEDS: PREGABALIN 75 MG CAPSULE PO (20:46)
[2025-02-01] VITALS: BP 148/62; PULSE 54; PULSE 60; RESP 12; TEMP 36.6; O2SAT 98
[2025-02-01 04:00] VITALS: BP 157/64; PULSE 59; RESP 13; TEMP 36.5; O2SAT 97
[2025-02-01 05:12] VITALS: BMI 29.0
[2025-02-01 05:24] LABS: Basophils # (Auto) 0.0 Thou/mm3 (0.0-0.2); Basophils % (Auto) 1 % (0-2.5); Eosinophils # (Auto) 0.1 Thou/mm3 (0.0-0.5); Eosinophils % (Auto) 2 % (0-10); Hematocrit 32.3 % (36.0-46.0); Hemoglobin 10.1 g/dL (12.0-16.0); Immature Granulocytes Auto 0.09 Thou/mm3 (0.00-0.00); Lymphocytes # (Auto) 1.1 Thou/mm3 (1.0-4.8); Lymphocytes % (Auto) 18 % (10-50); Mean Corpuscular HGB Conc 31.3 g/dl (31.0-37.0); Mean Corpuscular Hemoglobin 33.3 pg (25.0-35.0); Mean Corpuscular Volume 107 fL (80-100); Monocytes # (Auto) 0.4 Thou/mm3 (0.0-0.8); Monocytes % (Auto) 7 % (0-12); Neutrophils # (Auto) 4.4 Thou/mm3 (1.8-7.7); Neutrophils % (Auto) 71 % (37-80); Nucleated Red Blood Cell # 0.00 Thou/mm3 (0.00-0.00); Nucleated Red Blood Cell % 0 /100 WBC (0); Platelet Count 149 Thou/mm3 (140-440); RDW Standard Deviation 60.9 fL (36.4-46.3); Red Blood Count 3.03 Miln/mm3 (4.00-5.20); White Blood Count 6.2 Thou/mm3 (3.6-11.0)
[2025-02-01 05:28] LABS: Glucose Estimated Average 177 mg/dL (80-131); Hemoglobin A1C 7.8 % Hgb (4.8-6.0)
[2025-02-01 05:32] LABS: INR 1.0 (0.9-1.3); Partial Thromboplastin Time 25.4 Seconds (22.0-36.0); Prothrombin Time 10.4 Seconds (9.0-12.2)
[2025-02-01 06:09] LABS: Alanine Aminotransferase 28 U/L (10-49); Albumin, Serum 4.0 gm/dL (3.4-4.8); Albumin/Globulin Ratio 1.7 (1.2-2.2); Alkaline Phosphatase 111 U/L (46-116); Anion Gap 13 (7-16); Aspartate Amino Transferase 34 U/L (0-34); BUN/Creatinine Ratio 6 Ratio (12-20); Bilirubin,Total 0.3 mg/dL (0.3-1.2); Blood Urea Nitrogen 23 mg/dL (9-23); Calcium 8.8 mg/dL (8.3-10.6); Calcium (Corrected) 8.8 mg/dL (8.5-10.1); Carbon Dioxide 27.9 mMol/L (20.0-31.0); Chloride 103 mMol/L (98-107); Creatinine (Component) 3.6 mg/dL (0.6-1.3); Estimated Creatinine Clearance 12.5 mL/min (>60); Globulin 2.4 gm/dL (2.3-3.5); Glucose 217 mg/dL (74-106); Magnesium 2.3 mg/dL (1.6-2.6); Osmolality,Calculated 297 (275-295); Phosphorous 5.4 mg/dL (2.4-5.1); Potassium 4.5 mMol/L (3.4-5.1); Sodium 144 mMol/L (136-145); Thyroid Stimulating Hormone 1.13 uIU/mL (0.55-4.78); Total Protein 6.4 gm/dL (5.7-8.2); eGFR 13 See Note
[2025-02-01 06:23] LABS: Hepatitis A Antibody IgM Non Reactive (Non React); Hepatitis B Core Antibody IgM Non Reactive (Non React); Hepatitis B Surface Ab NonReact(Not Immune) (Immune); Hepatitis B Surface Antigen Non Reactive (Non React); Hepatitis C Antibody Non Reactive (Non React)
[2025-02-01] MEDS: INSULIN HUM REGULAR 1 UNIT/0.01 ML (PER UNIT) SC ×2 (07:28→11:24)
[2025-02-01 08:00] VITALS: BP 149/55; PULSE 53; PULSE 64; RESP 19; TEMP 36.2; O2SAT 93
[2025-02-01] MEDS: PANTOPRAZOLE 40 MG TABLET PO (09:03)
[2025-02-01] MEDS: PREGABALIN 75 MG CAPSULE PO (09:03)
[2025-02-01] MEDS: CLOPIDOGREL BISULFATE 75 MG TABLET PO (09:04)
--- NOTE | 2025-02-01 09:11 | ESPR_ITS ---
Documentation for date of: 02/01/25 Subjective Subjective Interval history: History of present illness: Ms. Barakat is a 69-year-old female with past medical history of ESRD on HD (MWF), coronary artery disease status post stent placement, history of DVT with previous IVC filter placement, bdd-qshsvtu-krukqsrvs type 2 diabetes, hide per lipidemia presenting to the ED on 01/31 with an episode of chest pain during dialysis session. As per EMS report, patient started experiencing substernal chest pain 20 minutes into dialysis session associated with some shortness of breath. She states that she was having chest pain on and off for several weeks now but that during dialysis session it was unbearable. En route, EMS did give the patient 156 mg aspirin along with nitroglycerin which apparently improved her pain down to 2 out of 10. Of note, she sees cardiology outpatient (last visit several weeks ago) and recent stress test was unremarkable. She also states that for the past few weeks she has felt more dizzy especially when ambulating. On examination, patient presented mildly hypertensive 141/42, bradycardic with a heart rate of 41, respiratory rate of 13, afebrile satting 99 on room air. Pertinent lab findings included macrocytic anemia with hemoglobin 10.1 and MCV of 106, platelets 115, CMP did show hyperkalemia with a potassium of 5.9, BUN 52, creatinine 5.5, mild elevation of liver enzymes with an AST of 44, ALT 31 but daily bilirubin of 0.2, troponin was initially 0.129 but has downtrended to 0.127 and BNP is 1810, lipase of 36. EKG showed sinus bradycardia with prolonged AR interval likely first-degree AV block with some T wave abnormalities but no ST elevation. Chest x-ray did show early signs of CHF with prominent vascular congestion and mildly enlarged cardiac silhouette. Past Medical History: as above Family History: noncontributory Surgical History: stent placement 3 years ago, remote right hand surgery Social History: Denies history of smoking, denies current alcohol use, denies recreational drug use Current Medications: Takes Lupe-parminder but does not take phoshate binder, does not recall meds nor has list, pending med rec Allergies: No known drug allergies Nephrology consulted for ESRD on dialysis MWF, requiring emergent dialysis today. 01/31/25: Patient seen and assessed during dialysis with patient daughter at bedside. Tolerating dialysis well. Follows back shoe operator Dr. Lopez. Per daughter, patient was started on dialysis 3 years ago after multiple consecutive MIs, last dialysis session Friday. Reports she has been compliant with sessions. Plan to remove 2L, will keep dialysis schedule for now. 02/01/25: Patient seen and assessed at bedside with daughter present. Doing well, feeling better subjectively. Denies chest pressure or shortness of breath. Systolic BP 150s in AM, restart amlodipine 5 mg daily. Saturating well off oxygen but continues to be bradycardic with HR in 40s at bedside. Per daughter, patient has been able to sit up on edge of bed and ambulate to bathroom without lightheadedness or dizziness. Removed 1.8L yesterday, tolerated well. Sodium 144, potassium 4.5, chloride 103, bicarb 27.9, BUN 23, creatinine 3.6 (from 5.5), GFR 13. Calcium 8.8, phosphorus 5.4, magnesium 2.3. A1c 7.8. TSH 1.13. Plan for dialysis tomorrow per schedule. Exam Vital Signs Temp Pulse Resp BP Pulse Ox O2 Del Method 97.1 F 53 L 19 149/55 H 93 L Room Air 02/01/25 08:00 02/01/25 08:00 02/01/25 08:00 02/01/25 08:00 02/01/25 08:00 02/01/25 08:00 Narrative Exam Physical Exam General: Awake and in no acute distress. Conversational and non-toxic appearing. Ugandan speaking, daughter at bedside. HEENT: Normocephalic, atraumatic, mucous membranes moist. Heart: Regular rate and rhythm, normal S1 and S2, no murmurs appreciated. Lungs: Clear to auscultation with no wheezing or crackles. Abdomen: Soft, nondistended, nontender, positive bowel sounds. No guarding or rebound tenderness. Neurologic: Alert and oriented x3, no gross neurological deficit, and patient able to move all 4 extremities. Extremities: Trace pitting edema in lower extremities. Skin: No rash or ecchymoses. Objective Labs 02/01/25 04:55 02/01/25 04:55 Labs: Laboratory Results - last 24 hr 01/31/25 01/31/25 02/01/25 11:19 12:27 04:55 WBC 7.1 6.2 RBC 2.98 L 3.03 L Hgb 10.1 L 10.1 L Hct 31.7 L 32.3 L MCV 106 H 107 H MCH 33.9 33.3 MCHC 31.9 31.3 RDW Std Deviation 60.8 H 60.9 H Plt Count 115 L 149 D Neut % (Auto) 70 71 Lymph % (Auto) 18 18 Keith % (Auto) 8 7 Eos % (Auto) 3 2 Baso % (Auto) 0 1 Neut # (Auto) 5.0 4.4 Lymph # (Auto) 1.3 1.1 Keith # (Auto) 0.6 0.4 Eos # (Auto) 0.2 0.1 Baso # (Auto) 0.0 0.0 Immature Gran # (Auto) 0.03 H 0.09 H Absolute Nucleated RBC 0.00 0.00 Immature Gran % 0 2 H Nucleated RBC % 0 0 PT 10.4 INR 1.0 APTT 25.4 Sodium 143 144 Potassium 5.9 H 4.5 D Chloride 103 103 Carbon Dioxide 25.6 27.9 Anion Gap 14 13 BUN 52 H 23 Creatinine 5.5 H* 3.6 H D Estim Creat Clear Calc 8.1 L 12.5 L eGFR 8 L* 13 L* BUN/Creatinine Ratio 9 L 6 L Glucose [address] Glu mg/dL 177 H Hemoglobin A1c 7.8 H Calculated Osmolality 311 H 297 H Calcium 8.6 8.8 Corrected Calcium 8.8 8.8 Phosphorus 5.4 H Magnesium 2.7 H 2.3 Total Bilirubin 0.2 L 0.3 AST 44 H 34 ALT 31 28 Alkaline Phosphatase 105 111 Troponin I 0.129 H* 0.127 H* B-Natriuretic Peptide 1810 H* Total Protein 6.2 6.4 Albumin 3.8 4.0 Globulin 2.4 2.4 Albumin/Globulin Ratio 1.6 1.7 Lipase 36 TSH 1.13 Hepatitis A IgM Ab Non Reactive Hep Bs Antigen Non Reactive Hep Bs Antibody NonReact(Not Immune) L Hep B Core IgM Ab Non Reactive Hepatitis C Antibody Non Reactive Quality Measures Quality Measures VTE prophylaxis Advance care planning discussed with:: patient and child Assessment & Plan Assessment Current Active Medications: Generic Name Dose Route Start Last Admin Trade Name Freq PRN Reason Stop Dose Admin Acetaminophen 650 mg 01/31/25 15:16 Acetaminophen 325 Mg Tablet PO 03/02/25 15:05 Q6H PRN FEVER >100.4 Atorvastatin Calcium 80 mg 01/31/25 21:00 01/31/25 20:45 Atorvastatin Calcium 20 Mg Tablet PO 03/02/25 20:59 80 mg HS ANGELES Administration Cilostazol 50 mg 01/31/25 21:00 02/01/25 09:03 Cilostazol 50 Mg Tablet PO 03/02/25 20:59 50 mg BID ANGELES Administration Clopidogrel Bisulfate 75 mg 02/01/25 09:00 02/01/25 09:04 Clopidogrel Bisulfate 75 Mg Tablet PO 03/03/25 08:59 75 mg DAILY ANGELES Administration Dextrose 25 ml 01/31/25 15:54 Dextrose 50%-Water Inj 50 Ml Syringe IV 03/02/25 15:53 Q15MIN PRN BG 50-70 responsive npo pt Dextrose 50 ml 01/31/25 15:54 Dextrose 50%-Water Inj 50 Ml Syringe IV 03/02/25 15:53 Q15MIN PRN BG <50 OR BG <70 & pt unresponsive Glucagon 1 mg 01/31/25 15:54 Glucagon Inj 1 Mg Vial IM Q15MIN PRN BG <70, and no IV access Insulin Human Regular 0 unit 02/01/25 07:30 02/01/25 07:28 Insulin Hum Regular 1 Unit/0.01 Ml (Per Unit) SC 03/03/25 07:29 2 unit ACHS ANGELES Administration Protocol Midodrine 2.5 mg 01/31/25 15:47 Midodrine 2.5 Mg Tablet PO 03/02/25 20:59 BID PRN Blood Pressure - Low Ondansetron HCl 4 mg 01/31/25 15:06 Ondansetron Inj 2 Mg/Ml Inj 2 Ml IVP 03/02/25 15:05 Q6H PRN NAUSEA OR VOMITING Protocol Pantoprazole Sodium 40 mg 02/01/25 09:00 02/01/25 09:03 Pantoprazole 40 Mg Tablet PO 03/03/25 08:59 40 mg QDAY ANGELES Administration Pregabalin 75 mg 01/31/25 21:00 02/01/25 09:03 Pregabalin 75 Mg Capsule PO 03/02/25 20:59 75 mg BID ANGELES Administration Plan Patient is a 69-year-old female with past medical history of ESRD on HD (MWF), coronary artery disease status post stent placement, history of DVT with previous IVC filter placement, tys-aczqnek-glkwzmtzo type 2 diabetes, hyperlipidemia presenting to the ED on 01/31 with an episode of chest pain during dialysis session. #MILY on ESRD (improving) #Dialysis MWF - Presented with sudden chest pressure and worsening shortness of breath during dialysis session today, however reports symptoms have been worsening over the past week - Has been on dialysis MWF for 3 years s/p MIs. Follows Dr. Lopez in [place]. Home medications include amlodipine 5 mg daily for BP, Tresiba 16 units daily, Lupe-Parminder, and Trajenta 5 mg daily. Not taking phosphate binder. - Trace edema in lower extremities but lung exam clear on admission. - BP 141/42 on admission, systolics 140-150. - Creatinine 5.5 (baseline 2.8-3.2 in 2023) --> 3.6 (02/01) - A1c 7.8. TSH 1.13. - Possibly multifactorial in setting of diabetes, hypertension, and consecutive MIs in the past. - S/p HD 01/31 (-1.8L) Plan: - Dialysis tomorrow - Amlodipine 5 mg daily for BP - Midodrine prn for hypotension during dialysis - Strict INOs - Daily weights - Monitor daily renal panel - Avoid nephrotoxic agents - Renally dose medications #Hyperkalemia (resolved) - Potassium 5.9 on admission -> 4.5 - Likely elevated due to interrupted dialysis session - S/p insulin, calcium gluconate, and albuterol in ED Plan: - Dialysis tomorrow - Monitor daily renal panel #NSTEMI type II versus less likely to be type I #CAD s/p stent placement 3 years ago #Symptomatic bradycardia #Hx DVT #S/p IVC filter placement #NIDDM2 #HLD #HTN - Defer to primary team for management Thank you for your consultation, please do not hesitate to reach out if you have any question or concern Patient plan of care was discussed with the attending physician, Dr. Salter. Stephanie Escobar DO, PGY-1 Attending Provider Attestation/Addendum Patient currently seen and examined with resident physician Dr. Escobar. Note reviewed, agree with findings and recommendations. Patient of Dr. Lopez. Daughter at bedside. Did have some chest pain and was sent from the dialysis unit. Currently asymptomatic. No EKG changes. Troponin negative. Patient resting comfortably. Renal lutz stable for discharge. Did receive dialysis yesterday. Chest pain-free.
[2025-02-01 12:00] VITALS: BP 162/46; PULSE 43; PULSE 48; RESP 18; TEMP 36.4; O2SAT 99
[2025-02-01 14:00] VITALS: BP 128/52; PULSE 43; RESP 18; TEMP 36.3; O2SAT 94
--- NOTE | 2025-02-01 14:47 | ESDS_ITS ---
<Statement entered by Aiden Brown MD - 02/01/25 15:10> Note reviewed and agree with care plan as documented. Please refer to the note below for further details. Plan discussed with attending physician Dr. Trevor Brown MD PGY-2 Internal Medicine Planned Discharge Date 02/01/25 DS: Providers Provider Date of admission: 01/31/25 15:01 Primary care physician: Katey Arboleda PA-C([facility] Admitting Provider: Maryam Barrera DO Attending Provider on Admission: Maryam Barrera DO Consults: 01/31/25 12:30 Consult to Cardiology Stat Comment: symptomatic bradycardia Consulting Provider: Staci Tejeda 01/31/25 12:40 Consult to Nephrology Stat Comment: esrd on hd m/w/f Consulting Provider: Tong Salter Attending Provider on DC: Darrion Chapa MD Discharging Provider: Darrion Chapa MD DS: Diagnosis Problem List Completed Was Problem List Reviewed/Reconciled?: Yes Hospital Course Hospital Course Hospital course: 69-year-old female with a past medical history of ESRD on HD MWF, CAD s/p 2 stents, DVT w/ IVC filter placement and non-insulin dependent type 2 diabetes presenting to [facility] on 01/31 with chest pain during her dialysis session. As per EMS report, patient started experiencing substernal chest pain 20 minutes into dialysis session associated with some shortness of breath. She states that she was having chest pain on and off for several weeks now but that during dialysis session it was unbearable. En route, EMS did give the patient 156 mg aspirin along with nitroglycerin which apparently improved her pain down to 2 out of 10. Of note, she sees cardiology outpatient (last visit several weeks ago) and recent stress test was unremarkable. She also states that for the past few weeks she has felt more dizzy especially when ambulating. Per patient, she had been having chest discomfort/pain, 7/10 dull w/out radiation to jaw nor extremities for about two weeks. She felt the pain more intensely today which prompted a vist to the ED. Pertinent lab findings on initial visit to ED included macrocytic anemia with hemoglobin 10.1 and MCV of 106, platelets 115, CMP did show hyperkalemia with a potassium of 5.9, BUN 52, creatinine 5.5, mild elevation of liver enzymes with an AST of 44, ALT 31 but daily bilirubin of 0.2, troponin was initially 0.129 but has downtrended to 0.127 and BNP is 1810, lipase of 36. EKG showed sinus bradycardia(~40bpm) with prolonged WI interval likely first-degree AV block with some T wave abnormalities but no ST elevation. Chest x-ray did show early signs of CHF with prominent vascular congestion and mildly enlarged cardiac silhouette. Patient was admitted for symptomatic bradycardia and further workup. Newly- prescribed metoprolol was stopped. Overnight patient did well and remained asymptomatic after dialysis. Her initial hyperkalemia resolved and returne to baseline and she did not endorse any chest pain by morning. Heart rate improved to WNL. In the setting of newly-prescribed metoprolol and symptomatic bradycardia, patient was held off of metoprolol admission as well as her midodrine. Cardiac consultation and nephrology consultation in the morning(after dialysis) revealed no need for pacemaker placement and for Ms. Barakat to be safely discharged. She was sent home with clear instructions for follow up with her studio data analyst, to continue on her MWF dialysis schedule and to halt midodrine and metoprolol medication administration. Daughters were at bedside and demonstrated understanding of Ms. Barakat's plans after discharge. DISCHARGE DIAGNOSES #Symptomatic bradycardia #Hyperlipidemia #CAD status post stents #End-Stage Renal Disease #Chronic Kidney Disease #Claudication, lower extremities #Nerve pain DISCHARGE INSTRUCTIONS (Espa?ol) Instrucciones m?dicas: Por favor, suspenda el medicamento metoprolol y midodrine debido a blackwell baja frecuencia card?toma. Contin?e tomando ronaldo dem?s medicamentos seg?n lo recetado. Consulte con blackwell cardi?logo y nefr?logo en un plazo de 1 a 2 semanas. Recuerde asistir a ronaldo citas de di?lisis los lunes, mi?rcoles y viernes. Consulte con blackwell m?dico de cabecera dentro de las dos semanas posteriores al rohini. Regrese al servicio de urgencias si presenta empeoramiento de los s?ntomas, shai dificultad para respirar, sudoraci?n, dolor en el pecho, fiebre, dolor de jatin o cualquier otra inquietud. (Ingl?s)Medical Instructions: Please hold medication metoprolol and midodrine due to your low heart rate. Continue to take your other medications as prescribed Please follow up with your cardiology and kidney doctor within 1-2 weeks. Remember to go to your dialysis appointments on Friday and Friday Please visit your primary care physician within two weeks of discharge Please return to the emergency department for any worsening symptoms of s hortness of breath, sweating, chest pain, fever, headache or any other concerns Status at Discharge Cognitive/behavioral status at discharge: normal, at cognitive, neurological baseline Time Spent with Patient Time attestation: Total time spent providing and/or coordinating discharge services: 60 mins Time spent: Greater than 30 minutes Exam Vital Signs Temp Pulse Resp BP Pulse Ox O2 Del Method 97.4 F 43 L 18 128/52 L 94 L Room Air 02/01/25 14:00 02/01/25 14:00 02/01/25 14:00 02/01/25 14:00 02/01/25 14:00 02/01/25 14:00 Narrative Exam General: alert and oriented to self/place/year, no acute distress, able to speak full sentences; peruvian speaking HEENT: NC/AT, mucous membranes moist, bilateral sclera anicteric Cardiovascular: regular rate and rhythm, S1/S2 present, no murmurs appreciated Pulmonary: clear to auscultation bilaterally, no rales/rhonchi/wheezes Abdominal: soft, nontender, present bowel sounds Musculoskeletal: no peripheral edema; L arm AV dialysis fistula in place, palpable and audible thrill heard on auscultation Skin: Warm, well-perfused Discharge Plan Plan Patient Disposition: HOME (Self Care) Patient condition on transfer: Stable Care Plan Goals: (Espa?ol) Instrucciones m?dicas: Por favor, suspenda el medicamento metoprolol y midodrine debido a blackwell baja frecuencia card?toma. Contin?e tomando ronaldo dem?s medicamentos seg?n lo recetado. Consulte con blackwell cardi?logo y nefr?logo en un plazo de 1 a 2 semanas. Recuerde asistir a ronaldo citas de di?lisis los lunes, mi?rcoles y viernes. Consulte con blackwell m?dico de cabecera dentro de las dos semanas posteriores al rohini. Regrese al servicio de urgencias si presenta empeoramiento de los s?ntomas, shai dificultad para respirar, sudoraci?n, dolor en el pecho, fiebre, dolor de jatin o cualquier otra inquietud. (Ingl?s)Medical Instructions: Please hold medication metoprolol and midodrine due to your low heart rate. Continue to take your other medications as prescribed Please follow up with your cardiology and kidney doctor within 1-2 weeks. Remember to go to your dialysis appointments on Friday and Friday Please visit your primary care physician within two weeks of discharge Please return to the emergency department for any worsening symptoms of shortness of breath, sweating, chest pain, fever, headache or any other concerns Prescriptions/Referrals Prescriptions/Med Rec: Continued Tradjenta 5 mg Tablet 5 mg PO QAM amlodipine 5 mg tablet 5 mg PO QDAY Fiasp U-100 Insulin 100 unit/mL solution 4 unit subcut .2 PM Rx Instructions: daily at 2 pm insulin degludec [Tresiba FlexTouch U-200] 200 unit/mL (3 mL) insulin pen 16 unit subcut QDAY Rx Instructions: daily before breakfast atorvastatin [Lipitor] 80 mg Tablet 80 mg PO HS clopidogrel [Plavix] 75 mg Tablet 75 mg PO QDAY pregabalin 75 mg Capsule 75 mg PO BID Lupe-Alejandro Rx 1-60-300 mg-mg-mcg Tablet 1 tab PO QDAY acetaminophen [Tylenol 8 Hour] 650 mg Tablet Extended Release 650 mg PO BID cilostazol 50 mg Tablet 50 mg PO BID Held metoprolol succinate 25 mg tablet extended release 24 hr 25 mg PO QDAY Hold Instructions: Hold until follow-up with studio data analyst midodrine 2.5 mg Tablet 2.5 mg PO BID PRN (Reason: low blood pressure) Hold Instructions: Hold until you follow-up with your studio data analyst/PCP Discontinued Tradjenta 5 mg tablet 5 mg PO QDAY insulin NPH and regular human 100 unit/mL (70-30) Syringe 1 sliding scale dose SUBCUT USEASDIRECTD PreserVision AREDS 4,296 mcg-226 mg-90 mg Capsule 1 cap PO DAILY lisinopril 10 mg tablet 10 mg PO QDAY 30 Days Qty: 30 2RF polyethylene glycol 3350 [Miralax] 17 gram/dose powder 4 g PO QDAY Qty: 119 0RF Referrals: [facility] ([facility]),RAGHAVENDRA Del Toro [Primary Care Provider] Patient/Caregiver Discharge Instructions Discharge Activity: activity as tolerated Education Materials: Coping with Kidney Failure, CKD Dc, Heart Disease Women Print Language: Sinhala Stand Alone Forms: [facility] Award Info., Patient Portal Info Letter Discharge Order Discharge Orders: Discharge (Routine); Ordered 02/01/25 Ordered By: Aiden Escobar Iagurpreet Quality Discharge Quality Measures none MD Attestestation MD Attestation I have examined the patient, reviewed labs and imaging findings, discussed the case with the resident(s), and reviewed entered orders. I agree with the plan of care as outlined in this note. Time Spent: [address] Trevor MD
== END 2025-02-01 14:05 | disposition home or self-care (01) ==
LOC: SERX 15:31 → SERHOLD 16:28 → S2NX 02-01 06:16 → SERHOLD 02-01 10:47 → S2NX 02-01 10:47
PROVIDERS: Internal Medicine; Admitting Provider Internal Medicine; Emergency Provider Emergency Medicine; PCP Physician Assistant; Referring Provider Emergency Medicine; Visit Provider Internal Medicine
DX: R00.1 Bradycardia, unspecified (principal); E78.5 Hyperlipidemia, unspecified; I25.10 Atherosclerotic heart disease of native coronary artery without angina pectoris; E11.22 Type 2 diabetes mellitus with diabetic chronic kidney disease; I12.0 Hypertensive chronic kidney disease with stage 5 chronic kidney disease or end stage renal disease; N18.6 End stage renal disease; Z99.2 Dependence on renal dialysis; Z95.5 Presence of coronary angioplasty implant and graft; D53.9 Nutritional anemia, unspecified; E11.51 Type 2 diabetes mellitus with diabetic peripheral angiopathy without gangrene; E87.5 Hyperkalemia; I25.2 Old myocardial infarction; I44.1 Atrioventricular block, second degree; I45.10 Unspecified right bundle-branch block; M79.2 Neuralgia and neuritis, unspecified
CPT/HCPCS: 36415; 71045; 80053; 80074; 83036; 83690; 83735; 83880; 84100; 84443; 84484; 85025; 85610; 85730; 86706; 87081; 93005; 94644; 99284; G0378; J0612; J1815; A9270